=== PATIENT | male | born 1965 | race Caucasian/White ===

== ENCOUNTER → 2017-05-30 | Outpatient (CLI) | payer MEDICARE, OTHER ==
--- NOTE | 2017-05-30 15:09 | RAD ---
Indication: Right foot pain. Time of exam 1452 hours. The metatarsals are intact. The phalanges are intact. The midfoot and hindfoot are unremarkable. No fractures are seen. Impression: No acute bony abnormality is detected.
== END | disposition home or self-care (01) ==
LOC: PMG 14:39
PROVIDERS: ATTEND Physician Assistant
DX: M79.671 Pain in right foot (principal); F17.200 Nicotine dependence, unspecified, uncomplicated
CPT/HCPCS: 73630

== ENCOUNTER → 2018-02-13 | Outpatient (CLI) | payer MEDICARE, OTHER ==
--- NOTE | 2018-02-13 17:09 | RAD ---
Left shoulder, 3 views, 02/13/2018: HISTORY: Shoulder injury, pain No fracture or dislocation is identified. There is moderate degenerative change at the AC joint. There is a small soft tissue calcification adjacent to the greater tuberosity suggesting tendinitis at a rotator cuff insertion site. IMPRESSION: 1. Degenerative change. 2. No acute bony abnormality is detected. Electronically signed by: Arnel Figueroa MD (02/13/2018 5:05 PM) [facility]
== END | disposition home or self-care (01) ==
LOC: PMG 15:33
PROVIDERS: ATTEND Physician Assistant
DX: M25.512 Pain in left shoulder (principal); Z87.891 Personal history of nicotine dependence
CPT/HCPCS: 73030

== ENCOUNTER → 2019-01-15 | Outpatient (CLI) | payer MEDICARE, OTHER ==
--- NOTE | 2019-01-15 17:46 | RAD ---
Examination: NECK SOFT TISSUE History: Left submandibular soreness. Salivary calculus. The swelling. Comparison/Correlation: None Findings: Ultrasound imaging of the submandibular glands was performed. Left submandibular gland was primarily imaged. The right submandibular gland was imaged for comparison purposes. Echotexture of the left submandibular gland is unremarkable. No echogenic foci to suggest calculus involvement. Submandibular gland border is symmetric and unremarkable. No definite edematous findings. Impression: No left submandibular gland calculi identified. Electronically signed by: Deonte Benitez MD (01/15/2019 5:43 PM) [facility]
== END | disposition home or self-care (01) ==
LOC: US 14:29
PROVIDERS: ATTEND Physician Assistant
DX: K11.5 Sialolithiasis (principal)
CPT/HCPCS: 76536

== ENCOUNTER → 2019-05-30 | Outpatient (CLI) | payer MEDICARE, MEDICAID ==
[2019-05-30 19:44] LABS: CALCIUM 9.1 mg/dL (8.5-10.1); CREATININE 0.8 mg/dL (0.7-1.3); GFR 101.5; MAGNESIUM 2.1 mg/dL (1.8-2.4); POTASSIUM 4.5 mmol/L (3.5-5.1)
== END | disposition home or self-care (01) ==
LOC: PMG 18:27
PROVIDERS: ATTEND Registered Nurse
DX: M79.604 Pain in right leg (principal)
CPT/HCPCS: 36415; 80048; 83735

== ENCOUNTER → 2019-10-09 | Outpatient (CLI) | payer MEDICARE, MEDICAID ==
--- NOTE | 2019-10-09 15:53 | RAD ---
Examination: Ultrasound testis HISTORY: History of bilateral testicular pain left groin pain COMPARISON: None available. FINDINGS: The right testis measures 5.0 x 3.5 x 2.6 cm. The left testis measures 4.7 x 3.2 x 2.3 cm. Blood flow identified in the right and left testis.No evidence of hernia seen in the left groin. Small hydrocele on the right. Lymph nodes identified in the left groin with the largest measuring 3.5 cm. IMPRESSION: 1. The bilateral testes appears unremarkable. 2. Small right-sided hydrocele. 3. Multiple lymph nodes identified in the left groin with the largest measuring 3.5 cm Electronically signed by: Jagdish Rapp MD (10/09/2019 3:50 PM) [id number]
== END ==
LOC: PMG 14:29
PROVIDERS: ATTEND Registered Nurse
DX: N43.3 Hydrocele, unspecified (principal); K40.90 Unilateral inguinal hernia, without obstruction or gangrene, not specified as recurrent
CPT/HCPCS: 76870

== ENCOUNTER → 2020-08-18 | Outpatient (CLI) | payer MEDICARE, MEDICAID ==
--- NOTE | 2020-08-18 16:00 | RAD ---
Care Doppler lower extremities bilateral. HISTORY: Bilateral lower extremity tingling, foot tingling, hypertension Duplex ultrasound was used to evaluate the arteries of the lower extremities. Real-time imaging, colo r-flow imaging and Doppler were utilized for evaluation. Peak velocity in the right common femoral ar charlette was 147 cm/s. Triphasic flow continues throughout the left lower extremity. Peak velocity in the right deep femoral was 84 cm/s, velocity in the proximal femoral artery was 1 18 cm/s, velocity in t he distal right femoral was 80 cm/s with a triphasic pattern. Triphasic pattern was also noted in the popliteal with a velocity of 61 cm/s. There is triphasic flow in the proximal tibia was 79 cm/s. The re is triphasic flow in the right anterior tibial with velocity of 59 cm/s. There is flow in the dors haylee pedis with velocity of 23 cm/s. There is better flow with a velocity of 59 cm/s in the posterior tibial vein of the ankle. The left lower extremity there is a triphasic pattern with velocity of 19 in the left common femoral artery, velocity of 79 cm/s in the deep femoral or profunda femoral. Triphasic pattern noted througho ut the left lower extremity. Velocity in the proximal SFA was 112, velocity in the distal left SFA wi th 75 cm/s. Popliteal velocity was 81 cm/s with a triphasic pattern. Left posterior tibial had a trip hasic pattern velocity of 78 cm/s. Peroneal is triphasic with velocity of 58 cm/s. There is a triphas ic pattern at the left dorsalis pedis velocity of 62 cm/s IMPRESSION: 1. Triphasic flow throughout both lower extremities without major vessel stenosis or occlusion. Electronically signed by: Craig Yepez MD (08/18/2020 3:57 PM) [id number]
== END ==
LOC: US 14:52
DX: R20.2 Paresthesia of skin (principal); I10 Essential (primary) hypertension; M79.671 Pain in right foot; M79.672 Pain in left foot; L53.9 Erythematous condition, unspecified
CPT/HCPCS: 93925

== ENCOUNTER → 2020-12-08 | Outpatient (CLI) | payer MEDICARE, MEDICAID ==
--- NOTE | 2020-12-08 14:50 | RAD ---
EXAM: Left scapula, 2 views. HISTORY: Pain. COMPARISON: None. FINDINGS: 2 views of the left scapular obtained. There is no fracture, dislocation or subluxation. Th ere is minimal acromioclavicular joint osteoarthritis. IMPRESSION: No acute osseous finding. Electronically signed by: Keysha Garcia MD (12/08/2020 2:48 PM) [id number]
== END ==
LOC: PMG 14:28
PROVIDERS: ATTEND Physician Assistant
DX: M19.012 Primary osteoarthritis, left shoulder (principal); M54.6 Pain in thoracic spine
CPT/HCPCS: 73010